=== PATIENT | male | born 1980 | race Caucasian/White ===

== ENCOUNTER 2017-12-04 12:09 | Emergency (ER) | payer OTHER ==
[2017-12-04 13:06] LABS: BASOPHILS 0.4 % (0-2); EOSINOPHILS 4.7 % (0-7); HEMATOCRIT 39.7 % (42.0-54.0); HEMOGLOBIN 13.2 g/dL (13.5-17.5); IMMATURE GRANULOCYTES 0.1 % (0-5); LYMPHOCYTES 18.9 % (15-50); MCH 29.5 pg (26.0-34.0); MCHC 33.2 g/dL (31.0-37.0); MCV 88.8 fL (80.0-100.0); MEAN PLATELET VOLUME 9.9 fL (7.4-10.4); MONOCYTES 8.8 % (2-11); NEUTROPHILS 67.1 % (40-80); PLATELET COUNT 140 10x3/uL (130-400); RBC 4.47 10x6/uL (4.20-6.10); WBC 7.1 10x3/uL (4.8-10.8)
[2017-12-04 13:25] LABS: ALBUMIN 3.5 g/dL (3.4-5.0); ALKALINE PHOSPHATASE 88 U/L (46-116); ALT (SGPT) 237 U/L (10-68); BILIRUBIN - TOTAL 0.54 mg/dL (0.2-1.3); CALC OSMOLALITY 276 mosm/kg (275-300); CALCIUM 8.3 mg/dL (8.5-10.1); CARBON DIOXIDE 24.9 mmol/L (21.0-32.0); CHLORIDE - SERUM 103 mmol/L (98-107); CREATININE - SERUM 0.7 mg/dL (0.6-1.3); GLUCOSE 94 mg/dL (74-106); INR 1.08 (0.85-1.17); POTASSIUM - SERUM 3.8 mmol/L (3.5-5.1); PROTEIN - SERUM 7.2 g/dL (6.4-8.2); PROTIME 13.6 SECONDS (11.6-15.0); SODIUM 137 mmol/L (136-145); UREA NITROGEN 21 mg/dL (7-18); eGFR NON AFRICAN AMERICAN > 90 mL/min (90-120)
[2017-12-04 13:30] LABS: APPEARANCE CLEAR (CLEAR); BILIRUBIN NEGATIVE (NEGATIVE); COLOR DK YELLOW (YELLOW); GLUCOSE NEGATIVE (NEGATIVE); KETONE NEGATIVE (NEGATIVE); NITRITE NEGATIVE (NEGATIVE); PROTEIN NEGATIVE (NEGATIVE); SPECIFIC GRAVITY 1.025 (1.005-1.020); UROBILINOGEN NORMAL (NORMAL)
[2017-12-04 13:32] LABS: UDS - AMPHET POSITIVE QUAL (NEGATIVE); UDS - BARB NEGATIVE QUAL (NEGATIVE); UDS - BENZO NEGATIVE QUAL (NEGATIVE); UDS - COCAINE NEGATIVE QUAL (NEGATIVE); UDS - OPIATE NEGATIVE QUAL (NEGATIVE); UDS - PCP NEGATIVE QUAL (NEGATIVE); UDS - THC POSITIVE QUAL (NEGATIVE)
[2017-12-04 13:45] LABS: CREATINE KINASE 260 UL (21-232); PRO BNP 14 pg/mL (0-125); THYROID STIMULATING HORMONE 8.05 uIU/mL (0.36-3.74)
[2017-12-04 13:48] LABS: TROPONIN-I < 0.017 ng/mL (0.000-0.060)
[2017-12-04 13:49] LABS: CKMB 3.7 U/L (0.0-3.6)
[2017-12-05 07:30] LABS: HEPATITIS C ANTIBODY >11.0 (0.0-0.9)
== END 2017-12-04 14:33 | disposition home or self-care (01) ==
LOC: D.ER 12:09
PROVIDERS: Nurse Practitioner Family
DX: E86.0 Dehydration (principal); R74.8 Abnormal levels of other serum enzymes; F41.9 Anxiety disorder, unspecified; R53.83 Other fatigue; R79.89 Other specified abnormal findings of blood chemistry; I45.10 Unspecified right bundle-branch block; E03.9 Hypothyroidism, unspecified

== ENCOUNTER 2020-05-29 07:30 | Emergency (ER) | payer OTHER ==
[~2020-05-29] VITALS: Ht 190.5 cm; Wt 90.9 kg
[2020-05-29 07:36] VITALS: Ht 190.5 cm; Wt 90.9 kg
[2020-05-29] MEDS ORDERED: LEVOXYL137 MCG PO (07:38)
[2020-05-29 08:07] LABS: CALC OSMOLALITY 282 mosm/kg (275-300); CALCIUM 9.1 mg/dL (8.5-10.1); CARBON DIOXIDE 26.6 mmol/L (21.0-32.0); CHLORIDE - SERUM 104 mmol/L (98-107); CREATININE - SERUM 1.5 mg/dL (0.6-1.3); GLUCOSE 101 mg/dL (74-106); POTASSIUM - SERUM 3.7 mmol/L (3.5-5.1); SODIUM 139 mmol/L (136-145); UREA NITROGEN 27 mg/dL (7-18); eGFR NON AFRICAN AMERICAN 54 mL/min (90-120)
[2020-05-29 08:12] LABS: APTT 35.1 SECONDS (22.8-39.4); INR 0.98 (0.85-1.17)
[2020-05-29 08:16] LABS: HEMATOCRIT 39.5 % (42.0-54.0); MCH 31.5 pg (26.0-34.0); MCHC 32.9 g/dL (31.0-37.0); MCV 95.6 fL (80.0-100.0); RBC 4.13 10x6/uL (4.20-6.10); WBC 7.9 10x3/uL (4.8-10.8)
[2020-05-29 08:17] LABS: BASOPHILS 0.4 % (0-2); EOSINOPHILS 5.4 % (0-7); IMMATURE GRANULOCYTES 0.1 % (0-5); LYMPHOCYTES 31.2 % (15-50); MEAN PLATELET VOLUME 11.1 fL (7.4-10.4); MONOCYTES 8.2 % (2-11); NEUTROPHILS 54.7 % (40-80); RDW 14.1 % (11.5-14.5)
[2020-05-29 08:21] LABS: PLATELET COUNT 183 10x3/uL (130-400)
[2020-05-29 08:23] LABS: ALBUMIN 4.2 g/dL (3.4-5.0); ALKALINE PHOSPHATASE 74 U/L (30-120); ALT (SGPT) 65 U/L (10-68); BILIRUBIN - TOTAL 0.22 mg/dL (0.2-1.3); CKMB 27.7 U/L (0.0-3.6); MAGNESIUM - SERUM 2.3 mg/dL (1.8-2.4); PROTEIN - SERUM 7.8 g/dL (6.4-8.2); TROPONIN-I < 0.017 ng/mL (0.000-0.060)
[2020-05-29 08:27] LABS: CREATINE KINASE 2761 UL (21-232)
[2020-05-29 09:32] LABS: BILIRUBIN NEGATIVE (NEGATIVE); KETONE NEGATIVE (NEGATIVE); NITRITE NEGATIVE (NEGATIVE)
[2020-05-29 09:48] LABS: UDS - AMPHET POSITIVE QUAL (NEGATIVE); UDS - BARB NEGATIVE QUAL (NEGATIVE); UDS - BENZO NEGATIVE QUAL (NEGATIVE); UDS - COCAINE NEGATIVE QUAL (NEGATIVE); UDS - OPIATE NEGATIVE QUAL (NEGATIVE); UDS - PCP NEGATIVE QUAL (NEGATIVE); UDS - THC NEGATIVE QUAL (NEGATIVE)
[2020-05-29] MEDS ORDERED: HYDROCODON-ACE1 EAC7 PO (10:54)
[2020-05-29 11:20] VITALS: BP 112/74
== END 2020-05-29 11:20 | disposition home or self-care (01) ==
LOC: D.ER 07:30 → EDBD 07:30 → D.ER 11:20
PROVIDERS: Family Medicine
DX: M62.82 Rhabdomyolysis (principal); S43.102A Unspecified dislocation of left acromioclavicular joint, initial encounter; M25.512 Pain in left shoulder; F15.90 Other stimulant use, unspecified, uncomplicated; E07.9 Disorder of thyroid, unspecified; X58.XXXA Exposure to other specified factors, initial encounter